=== PATIENT | male | born 1930 | race Hispanic/Latino ===

== ENCOUNTER → 2020-03-20 | Outpatient (CLI) | payer OTHER, MEDICARE ==
[~2020-03-20] MED LIST: DOXY100C2 PO; ESOM20CA31 PO; IBUP-2077 PO; METO25TA6 PO
== END | disposition home or self-care (01) ==
LOC: SHCH 10:00
PROVIDERS: ATTEND Internal Medicine Cardiovascular Disease
DX: I51.7 Cardiomegaly (principal)
CPT/HCPCS: 93306

== ENCOUNTER → 2020-04-03 | Outpatient (CLI) | payer OTHER, MEDICARE | END | disposition home or self-care (01) | LOC: SHCH 15:48 | PROVIDERS: ATTEND Internal Medicine Cardiovascular Disease | DX: I73.9 Peripheral vascular disease, unspecified (principal) | CPT/HCPCS: 93925 ==

== ENCOUNTER → 2020-06-13 | Outpatient (CLI) | payer OTHER, MEDICARE ==
[~2020-06-13] MED LIST changes: +IOHEXOL 350 MG/ML 100ML INFUS..BTL IV ONE
== END | disposition home or self-care (01) ==
LOC: RAH 08:11
PROVIDERS: ATTEND Internal Medicine Cardiovascular Disease
DX: I71.2 Thoracic aortic aneurysm, without rupture (principal); I25.10 Atherosclerotic heart disease of native coronary artery without angina pectoris; K44.9 Diaphragmatic hernia without obstruction or gangrene; R22.2 Localized swelling, mass and lump, trunk; R18.8 Other ascites; K40.90 Unilateral inguinal hernia, without obstruction or gangrene, not specified as recurrent; N40.0 Benign prostatic hyperplasia without lower urinary tract symptoms
CPT/HCPCS: 71275; 74174; Q9967

== ENCOUNTER → 2021-04-16 | Outpatient (CLI) | payer OTHER, MEDICARE ==
[~2021-04-16] MED LIST changes: -IOHEXOL 350 MG/ML 100ML INFUS..BTL IV ONE
== END | disposition home or self-care (01) ==
LOC: SHCH 12:46
PROVIDERS: ATTEND Internal Medicine Cardiovascular Disease
DX: I87.2 Venous insufficiency (chronic) (peripheral) (principal); I73.9 Peripheral vascular disease, unspecified; R60.9 Edema, unspecified; R06.89 Other abnormalities of breathing
CPT/HCPCS: 93925; 93970

== ENCOUNTER → 2021-04-24 | Outpatient (CLI) | payer OTHER, MEDICARE ==
[~2021-04-24] MED LIST changes: -DOXY100C2 PO; +DOXY100C5 PO
== END | disposition home or self-care (01) ==
LOC: SHCH 13:02
PROVIDERS: ATTEND Internal Medicine Cardiovascular Disease
DX: I08.8 Other rheumatic multiple valve diseases (principal); R55 Syncope and collapse; I73.9 Peripheral vascular disease, unspecified
CPT/HCPCS: 93306; 93356

== ENCOUNTER 2021-12-31 05:59 | Day surgery (SDC) | payer OTHER, MEDICARE ==
[2021-12-27 11:26] LABS: CREATININE 0.9 mg/dL (0.5-1.5); POTASSIUM 4.2 mmol/L (3.5-5.1)
[2021-12-27 11:33] LABS: BASOPHILS % (AUTO) 0.2 % (0.0-5.0); EOSINOPHILS % (AUTO) 2.7 % (0.0-8.0); HEMATOCRIT 44.4 % (42-54); MEAN CORPUSCULAR HEMOGLOBIN 30.1 pg (27.0-33.0); MEAN CORPUSCULAR HGB CONC 32.4 g/dL (32.0-36.0); MEAN CORPUSCULAR VOLUME 92.7 fL (79-99); MONOCYTES % (AUTO) 7.1 % (3.0-13.0); NEUTROPHILS % (AUTO) 79.5 % (40.0-77.0); PLATELET COUNT (AUTO) 327 K/uL (130-400); RED BLOOD CELL COUNT(AUTO) 4.79 MIL/uL (4.50-6.20); RED CELL DISTRIBUTION WIDTH 13.2 % (11.0-15.5); WHITE BLOOD COUNT (AUTO) 8.6 K/uL (4.8-10.8)
[2021-12-27 11:35] LABS: INR 1.31 (0.85-1.15); PROTHROMBIN TIME 13.9 SEC (9.6-11.6)
[~2021-12-31] VITALS: Ht 160 cm; Wt 80.3 kg
[2021-12-31] VITALS (11 sets, daily range): BP systolic 106–154; BP diastolic 67–85
[2021-12-31] MEDS ORDERED: BUPIVACAINE/PF 0.25% 30ML VIAL IJ ONE (07:23)
[2021-12-31] MEDS ORDERED: CEFAZOLIN SODIUM 1 GM VIAL ONE (07:23)
[2021-12-31] MEDS ORDERED: MEPERIDINE-PF 25 MG/ML SYG ONE ×2 (07:24→07:51)
[2021-12-31] MEDS ORDERED: MIDAZOLAM HCL 1 MG/ML 2ML VIAL ONE ×2 (07:24→07:52)
[2021-12-31] MEDS ORDERED: LIDOCAINE HCL 1% MDV 50ML VIAL ONE (07:24)
[2021-12-31] MEDS ORDERED: ESOM40CA54 PO ×2 (08:05→08:06)
[2021-12-31] MEDS ORDERED: MECL-160 PO (08:05)
[2021-12-31] MEDS ORDERED: DONE5TAB33 PO (08:05)
[2021-12-31] MEDS ORDERED: METO25TA6 PO (08:05)
[2021-12-31] MEDS ORDERED: RIVA20TA PO (08:05)
[2021-12-31] MEDS: 0.9%NACL 1000ML 1,000 ML IV SCH ×2 (08:06→13:52)
[2021-12-31] MEDS ORDERED: ACETAMINOPHEN 325 MG TAB PO PRN ×2 (09:00)
[2021-12-31] MEDS ORDERED: CEFAZOLIN SODIUM 1 GM VIAL IVP SCH (14:00)
== END 2021-12-31 14:12 | disposition home or self-care (01) ==
LOC: DAH 05:59
PROVIDERS: ATTEND Internal Medicine Cardiovascular Disease
DX: Z45.010 Encounter for checking and testing of cardiac pacemaker pulse generator [battery] (principal); I49.5 Sick sinus syndrome; I48.0 Paroxysmal atrial fibrillation; I45.10 Unspecified right bundle-branch block; Z79.899 Other long term (current) drug therapy; Z79.01 Long term (current) use of anticoagulants
CPT/HCPCS: 33228; 36415; 80048; 85025; 85610; 85730; 93005; A4215; A4216; A4221; A4222; A4223 ×3; A4606; A4663; C1785; J0690 ×2; J2175 ×2; J2250 ×2; J3490 ×2; J7030; 99156; 99157